=== PATIENT | male | born 1990 ===

== ENCOUNTER 2017-02-07 10:18 | Emergency (ER) | payer MEDICAID ==
[2017-02-07 10:31] VITALS: TEMP 98
[2017-02-07] MEDS ORDERED: Naproxen 550 mg Tab PO STA (10:49)
--- NOTE | 2017-02-07 10:52 | C.PDOC ---
History Of Present Illness 26 yo male, hx of gastritis, presents with fever, sore throat, cough back pain x 1-2 weeks. pt reports cough x 2 weeks, started having b/l back pain x 1 week. did not get flu shot. cough is dry. no urinary changes, hematuria, n/v/d Time Seen by Provider: 02/07/17 10:35 Chief Complaint (Nursing): Cough, Cold, Congestion Past Medical History Reviewed: Historical Data, Nursing Documentation, Vital Signs Vital Signs: Last Vital Signs Temp 98 F 02/07/17 10:29 Pulse 71 02/07/17 12:06 Resp 18 02/07/17 12:06 BP 126/72 02/07/17 12:06 Pulse Ox 98 02/07/17 12:06 Family History: States: Unknown Family Hx - Social History Hx Alcohol Use: Yes Hx Substance Use: No Review Of Systems ENT: Positive for: Throat Pain Respiratory: Positive for: Cough Musculoskeletal: Positive for: Back Pain Physical Exam - Physical Exam Appears: Well, No Acute Distress Skin: Normal Color, Warm, Dry Eye(s): bilateral: Normal Inspection, PERRL, EOMI Nose: Normal Throat: Erythema, No Exudate Neck: Normal Cardiovascular: Rhythm Regular Respiratory: Other (mildly coarse bs b/l ) Gastrointestinal/Abdominal: Normal Exam, Soft, No Tenderness, No Guarding, No Rebound Back: Normal Inspection, No Vertebral Tenderness, Paraspinal Tenderness Extremity: Normal ROM ED Course And Treatment O2 Sat by Pulse Oximetry: 99 - Radiology CXR: Interpreted by Me, Viewed By Me CXR Interpretation: Yes: No Acute Disease. No: Pnemothorax Medical Decision Making Medical Decision Making: r/o pna/uti/strep/influenza 1150: ua neg. no blood. renal stone less likely. no trauma. suspected msk pain. cxr neg as read by me. pt pain imporved. no saddle anesthesia, no urinary changes. Disposition - Disposition Referrals: [facility] [Outside] [facility] [Outside] Disposition: HOME/ ROUTINE Disposition Time: 11:44 Condition: STABLE Additional Instructions: please follow up with your doctor. return to er with worsening symptoms or concerns. Prescriptions: levoFLOXacin [Levaquin] 750 mg PO DAILY #7 tab Naproxen 500 mg PO BID PRN #14 tab PRN Reason: Pain, Mild (1-3) Instructions: Acute Bronchitis (ED) - Clinical Impression Clinical Impression: Bronchitis
[2017-02-07] MEDS ORDERED: Naproxen 550 mg Tab PO ONE (11:01)
[2017-02-07 11:10] LABS: RBC URINE < 1 /hpf (0-3); URINE BILIRUBIN NEGATIVE (NEGATIVE); URINE BLOOD NEGATIVE (NEGATIVE); URINE COLOR Yellow (YELLOW); URINE GLUCOSE (UA) NORMAL (Normal); URINE KETONE NEGATIVE (NEGATIVE); URINE LEUKOCYTE ESTERASE NEG Leu/uL (Negative); URINE PROTEIN NEGATIVE (NEGATIVE); URINE UROBILINOGEN NORMAL mg/dL (0.2-1.0); WBC URINE < 1 /hpf (0-5)
[2017-02-07 12:07] VITALS: BP 126/72; PULSE 71; RESP 18
[2017-02-07 12:11] VITALS: O2SAT 99
--- NOTE | 2017-02-07 12:21 | RAD ---
HISTORY: cough COMPARISON: No prior. TECHNIQUE: Chest PA and lateral FINDINGS: LUNGS: No active pulmonary disease. PLEURA: No significant pleural effusion identified. No pneumothorax apparent. CARDIOVASCULAR: Normal. OSSEOUS STRUCTURES: No significant abnormalities. VISUALIZED UPPER ABDOMEN: Normal. OTHER FINDINGS: None. IMPRESSION: No active disease.
== END 2017-02-07 12:11 | disposition home or self-care (01) ==
LOC: C.ER 10:18
DX: J40 Bronchitis, not specified as acute or chronic (principal)